=== PATIENT | male | born 1990 | race Caucasian/White ===

== ENCOUNTER 2017-09-20 20:11 | Emergency (ER) | payer OTHER ==
[~2017-09-20] VITALS: Ht 180.3 cm; Wt 142.9 kg
== END 2017-09-20 21:26 | disposition home or self-care (01) ==
LOC: ER 20:11
DX: R07.2 Precordial pain (principal); F41.9 Anxiety disorder, unspecified; F43.0 Acute stress reaction; E66.9 Obesity, unspecified; E78.5 Hyperlipidemia, unspecified; F17.220 Nicotine dependence, chewing tobacco, uncomplicated
CPT/HCPCS: 71046; 93005; 93010; 99283